=== PATIENT | male | born 1985 | race Caucasian/White ===

== ENCOUNTER 2018-09-05 11:21 | Emergency (ER) | payer MEDICAID, SELFPAY ==
[2018-09-05 10:56] VITALS: BMI 20.9
[2018-09-05 11:21] VITALS: BP 116/76; PULSE 83; RESP 13; TEMP 36.6; O2SAT 98; BMI 22.4
== END 2018-09-05 13:49 ==
LOC: ED 13:32
PROVIDERS: Emergency Provider Emergency Medicine
DX: R10.9 Unspecified abdominal pain (principal)

== ENCOUNTER 2018-10-11 21:44 | Emergency (ER) | payer MEDICAID, SELFPAY ==
[2018-10-11 21:44] VITALS: BP 142/88; PULSE 71; RESP 24; TEMP 37; O2SAT 100; BMI 22.3
[2018-10-11 22:13] LABS: Mucous, Urine 0 SEEN /hpf (<or=2+); Squamous Epithelial Cells - UA 0 SEEN /hpf (0-5)
[2018-10-11 22:16] LABS: Absolute Lymphocyte Count 4.37 X10^3/ul (0.83-4.51); Absolute Neutrophil Count 13.4 X10^3/uL (2.0-7.7); Basophil# 0.05 X10^3/uL; Basophil% 0.3 % (0-1); Eosinophil# 0.14 X10^3/uL; Eosinophils% 0.7 % (0-5); Hematocrit 42.6 % (40-54); Hemoglobin 14.5 g/dl (13.0-16.5); Lymphocyte # 4.37 X10^3/ul (4.0); Lymphocyte % 22.5 % (19-41); Mean Corpuscular Hgb 30.9 pg (27.0-32.0); Mean Corpuscular Volume 90.8 fL (80-94); Mean Platelet Vol. 11.2 fl (6.2-12.0); Monocyte# 1.42 X10^3/uL; Monocyte% 7.3 % (0-10); Neutrophil # 13.39 X10^3/uL (2.7-7.7); Neutrophil % 68.8 % (47-70); POSITIVE COUNT NO; POSITIVE DIFFERENTIAL NO; POSITIVE MORPHOLOGY NO; Platelet Count 203 K/mm3 (150-450); RBC Distribution Width CV 13.2 % (11.6-14.6); Red Blood Count 4.69 M/mm3 (4.6-6.2); White Blood Count 19.4 K/mm3 (4.4-11.0)
[2018-10-11 22:17] LABS: Color, Urine Yellow (Yellow); Glucose, Dipstick Normal (Normal); Ketone-Dipstick Negative (Negative); Leukocyte Esterase-Dipstick 500 /ul (Negative); Nitrite-Dipstick Positive (Negative); Occult Blood-Urine 250 /ul (Negative); Protein-Dipstick 100 mg/dl (Negative); Specific Gravity, Urine 1.015 (1.002-1.030); Urine Bilirubin Dipstick Negative (Negative); Urine Clarity Cloudy (Clear); Urine Urobilinogen Normal (Normal); Urine pH 6.5 (5.0 - 8.0)
[2018-10-11 22:30] LABS: Anion Gap 6 (5-15); BUN 16 mg/dL (7-18); BUN/Creat Ratio 15.8 RATIO (10-20); Calcium,Total 9.1 mg/dL (8.5-10.1); Chloride 104 mmol/L (98-107); Creatinine, Serum 1.01 mg/dL (0.70-1.30); EST Glomerular Filtration Rate 92 mL/min (>60); Est Glom Filt Rate - Afr Amer 111 mL/min (>60); Estimated Creatinine Clearance 88.39 ml/min; Glucose 108 mg/dL (74-106); Potassium 3.4 mmol/L (3.5-5.1); Sodium Level 139 mmol/L (136-145)
[2018-10-11 22:34] LABS: Red Blood Cells-Urine 25-50 SEEN /hpf (0-5)
[2018-10-11 22:35] LABS: Bacteria RARE /hpf (None Seen); White Blood Cells >100 SEEN /hpf (0-5)
--- NOTE | 2018-10-11 22:54 | CT_ITS ---
STUDY: CT ABDOMEN AND PELVIS WITHOUT CONTRAST REASON FOR EXAM: Male, 33 years old. Left flank pain RADIATION DOSAGE (If Supplied By Facility): CTDIvol = ( 5.40 ) mGy, DLP = ( 243.09 ) mGycm TECHNIQUE: Transaxial images were obtained from the dome of the diaphragm to the symphysis pubis without oral contrast, and without intravenous contrast. Sagittal and coronal images were reconstructed. Individualized dose optimization techniques were used for this CT. COMPARISON: 04/14/2014. FINDINGS: The visualized lung bases are unremarkable. The visualized portions of the heart are within normal limits. Normal liver. Normal gallbladder and extrahepatic biliary system. Normal spleen. Normal pancreas. Normal bilateral adrenal glands. Normal right kidney. Left kidney has numerous renal stones which are markedly worse than on previous. The stones are primarily in the lower pole calyces and the largest measures approximately 1.6 cm in size. There is generalized caliectasis and mild hydronephrosis on the left and diffuse cortical thinning. These findings are stable. There is left moderate hydroureter, although the bladder and at the left UVJ several small calcifications are seen suggestive of recently passed stones. Evaluation of the GI tract is limited by absence of oral contrast. Cannot exclude stomach wall thickening. No dilated loops of bowel or evidence for obstruction. Cannot exclude segmental thickening of the ro of the small or large bowel. Cannot exclude enteritis or colitis. Moderate diffuse fecal retention. Appendix within normal limits. Normal abdominal aorta. Normal inferior vena cava. There is retroperitoneal lymphadenopathy with enlarged nodes greater than 10-15mm in the short axis. Urinary bladder has a normal contour but appears to have an wall, especially posteriorly, and very numerous bladder stones are seen along the posterior wall of the bladder. These were not present in 2014. Normal abdominal wall. Normal osseous structures. CT/Abdomen/Pelvis without Cont IMPRESSION: Marked increase in size of several left lower pole renal stones. Becoming staghorn calculi. There appears to be chronic caliectasis and mild hydronephrosis of left kidney with cortical thinning. There is left hydroureter and probably some very recently passed stones near the orifice of the left UVJ. Numerous bladder stones are seen. Electronically Signed: Rashel Aponte MD at 23:40 EST , Service support ,
[2018-10-11] MEDS: Ketorolac 30 MG/ML Syringe IV (23:01)
[2018-10-11] MEDS: 0.9% Normal Saline 1,000 ML 999 ML IV (23:01)
[2018-10-11] MEDS: Ceftriaxone 1 GM/50 ML BAG IV (23:03)
--- NOTE | 2018-10-12 | ED.VISSUMM ---
- ER Visit Summary Date of Service: 10/12/18 Chief Complaint: Flank pain History of Present Illness: The patient is a 33 M who presents with flank pain. This began 3 hours ago. It was sudden onset. He currently rates his pain a 6 out of 10 but was 10 out of 10. It is aching. He also reports nausea. No diarrhea. No dysuria frequency or urgency. He has had some mild pain intermittently for a couple of days but nothing as severe as tonight. He does have a history of kidney stones. Physical Examination: Blood pressure 142/88 vitals otherwise notable for respiratory rate 24. Moist mucous membranes Heart regular rate and rhythm Lungs clear Abdomen soft no reproducible tenderness nondistended Patient does have left CVA tenderness Test Results: Labs notable for white blood cell count 19.4. Urinalysis shows 500 leukocyte esterase, positive nitrates, greater than [address] the flank shows market increase in renal calculi on the left developing staghorn calculi Left hydroureter with an probable recently passed stones at the left UVJ Emergency Department Course and Treatment: Patient's workup as above. He was given IV fluids Toradol Rocephin. He has pyelonephritis with nephrolithiasis. I do feel he requires hospitalization for IV antibiotics and urology consultation. The patient refuses to stay. We had a discussion of risks and benefits including the risks associated with leaving AGAINST MEDICAL ADVICE including but not limited to bacteremia, sepsis, organ failure, , permanent disability. He vocalized understanding. He cites financial reasons for his unwillingness to stay. I discussed that we could also involve social work to try to help with this. The patient understands the risks and wishes to leave AGAINST MEDICAL ADVICE. I did speak to Dr. Dahl to try to arrange for close outpatient follow-up. Patient will be discharged on Cipro. Treatment Plan: [] Disposition: Discharge Impression: Pyelonephritis Nephrolithiasis This note was generated with [employer] dictation software. It may contain incorrect words, spelling, and punctuation that were not noted in review of the chart prior to signing ED Disposition - Plan for ED Patient: Referrals: Care Physician,No Primary [Primary Care Provider] -
--- NOTE | 2018-10-12 00:04 | ED.DEP ---
ED Disposition - Plan for ED Patient: Instructions: ED UTI Pyelonephritis Male, ED Stone Renal W Colic Prescriptions: Ciprofloxacin [Cipro] 500 mg PO BID #14 tab Referrals: Care Physician,No Primary [Primary Care Provider] - Satnam Dahl MD [STAFF PHYSICIAN] -
[2018-10-12 00:21] VITALS: BP 126/74; PULSE 79; RESP 16; O2SAT 99
--- NOTE | 2018-10-12 00:21 | ED.RN ---
PT VOICES UNDERSTANDING WITH SEVERITY OF ILLNESS AND RECOMMENDATION TO BE ADMITTED FOR IV ATB. DECLINES TO STAY, OFFERED FINANCIAL RESOURCES, PT DECLINES. PT ACKNOWLEDGES HE CAN RETURN AT ANY TIME FOR CARE.
== END 2018-10-12 00:27 | disposition left against medical advice (07) ==
LOC: ED 23:38
PROVIDERS: Emergency Provider Emergency Medicine
DX: N20.0 Calculus of kidney (principal); N13.4 Hydroureter; Z53.21 Procedure and treatment not carried out due to patient leaving prior to being seen by health care provider; Z87.442 Personal history of urinary calculi; Z72.0 Tobacco use
CPT/HCPCS: 74176; 80048; 81001; 85025; 96361; 96365; 96375; 99283; J7030; A4216

== ENCOUNTER 2018-11-09 07:15 | Emergency (ER) | payer MEDICAID, SELFPAY ==
[2018-11-09 07:16] VITALS: BP 138/78; PULSE 87; RESP 16; TEMP 36.8; O2SAT 98; BMI 22.3
--- NOTE | 2018-11-09 07:28 | CT_ITS ---
STUDY: CT ABDOMEN AND PELVIS WITHOUT CONTRAST REASON FOR EXAM: Male, 33 years old. Abdominal pain. RADIATION DOSAGE (If Supplied By Facility): CTDIvol = ( 6.04 ) mGy, DLP = ( 289.93 ) mGycm TECHNIQUE: Transaxial images were obtained from the dome of the diaphragm to the symphysis pubis without oral contrast, and without intravenous contrast. Sagittal and coronal images were reconstructed. Individualized dose optimization techniques were used for this CT. COMPARISON: Comparison is made with prior study dated October 11, 2018. FINDINGS: Minimal degree of right basilar atelectasis. The visualized portions of the heart are within normal limits. Normal liver. Normal gallbladder and extrahepatic biliary system. Normal spleen. Normal pancreas. Normal bilateral adrenal glands. Normal right kidney. Stable mild degree of left hydronephrosis and left hydroureter down to the insertion into the ureteral vesicle junction. Multiple large calculi are seen in the lower pole calyx of the left kidney. These are unchanged. The largest measures approximately 1.6 cm. Normal visualized stomach. Normal small intestine. Normal colon. The appendix is visualized and appears normal. Normal abdominal aorta. Normal inferior vena cava. Normal retroperitoneum. The previously seen bladder stones are not seen at this time. Normal abdominal wall. Normal osseous structures. CT/Abdomen/Pelvis without Cont IMPRESSION: Stable left hydronephrosis and left hydroureter. Stable multiple calcifications in the lower pole calyx of the left kidney. Electronically Signed: Yinka Malagon, at 8:46 EDT , Service support ,
--- NOTE | 2018-11-09 07:35 | ED.DCSUM_ITS ---
- ER Visit Summary Date of Service: 11/09/18 Chief Complaint: Flank pain History of Present Illness: The patient is a 33 M presents to the emergency department flank pain. Patient has a history of kidney stones. He underwent lithotripsy 2 weeks ago at [facility]. Patient has follow-up done yesterday. He did want to obtain an outpatient CT to evaluate for recurrent stones and plan the next procedure. His insurance would not cover it. Patient states his pain is been adequately controlled with oral medication, but the pain has still been persistent. He states he discussed this with his urologist who told him the best thing to do would be go to the emergency department to get his CT done so they can appropriately plan his next procedure. He denies any nausea or vomiting. He denies any fevers or chills. He denies any dysuria or frequency. Physical Examination: Vital signs reviewed General: Well-nourished, well-developed Head: Normocephalic, atraumatic Eyes: Pupils equal and reactive, extraocular muscles intact Neck, supple, no lymphadenopathy Heart: Regular rate and rhythm Respiratory: No distress, clear bilaterally Abdomen: Soft, nontender, nondistended, no peritoneal signs Back: Nontender Extremities: Nontender, no edema, no cords Skin: Normal color no rash Neuro: Alert and oriented, no focal or lateralizing deficits Test Results: [] Emergency Department Course and Treatment: The patient presents with flank pain and requesting CT scan. Given recent procedure I do feel that this is reasonable. UA was ordered. The patient is not really having any significant pain at this time did not want any medication. Patient underwent CT the flank. However, prior to the final read, the patient eloped. He had told the nurse that he just needed the CAT scan and the results faxed to his urologist that he did not need to stay. I was unable to address this with the patient or reevaluate him. He eloped prior to completion of his evaluation. Treatment Plan: [] Disposition: Elopement Impression: 1. Left flank pain with history of kidney stone This note was generated with [employer] dictation software. It may contain incorrect words, spelling, and punctuation that were not noted in review of the chart prior to signing ED Disposition - Plan for ED Patient: Referrals: Care Physician,No Primary [Primary Care Provider] -
--- NOTE | 2018-11-09 08:05 | ED.RN ---
PT STATED THAT HE JUST WANTED A CT DONE HE KNOWS THAT HE NEEDS SURG. PT WANTS RESULTS FAXED TO AT [facility]
== END 2018-11-09 08:07 | disposition home or self-care (01) ==
LOC: ED 07:46
PROVIDERS: Emergency Provider Emergency Medicine
DX: R10.9 Unspecified abdominal pain (principal); M54.9 Dorsalgia, unspecified; Z87.442 Personal history of urinary calculi
CPT/HCPCS: 74176; 99282